=== PATIENT | male | born 1995 | race Caucasian/White ===

== ENCOUNTER 2017-05-17 08:36 | Emergency (ER) | payer OTHER ==
[2017-05-17 08:46] VITALS: RESP 16; TEMP 97.7; O2SAT 97
--- NOTE | 2017-05-17 09:08 | EDPHY ---
H & P Time Seen by Provider: 05/17/17 08:58 HPI/ROS: CHIEF COMPLAINT: Abdominal pain HISTORY OF PRESENT ILLNESS: Patient is a 21-year-old male who presents emergency department with epigastric abdominal pain. The patient states that he had dysuria and frequency last week. He was seen at a free-standing emergency department on . A few days later he was called and diagnosed with chlamydia. He took a 1000 mg of azithromycin as an outpatient. He now has mild abdominal discomfort that started after taking azithromycin. He has no dysuria or frequency. No visible hematuria. No fevers or chills. No nausea or vomiting. No suprapubic pain. REVIEW OF SYSTEMS: My complete review of systems is negative except as mentioned in the HPI. Past Medical/Surgical History: Includes bipolar disorder, OCD, attention deficit hyperactivity disorder, anxiety Past surgical history: Negative Social history: Patient smokes cigarettes. Smoking Status: Current every day smoker Physical Exam: Vitals noted. 36.5, 119/75, 58, 16, 97% on room air GENERAL: Well-appearing, in no acute distress, alert. HEENT: Eyes normal to inspection, normal pharynx, no signs of dehydration. NECK: No thyromegaly, no lymphadenopathy, supple. RESPIRATORY: Clear to auscultation bilaterally, no rales, rhonchi or wheezing. CVS: Regular rate and rhythm, no rubs, murmurs, or gallops. ABDOMEN: Soft, mild epigastric tenderness to palpation with no rebound or guarding, nondistended, no organomegaly. BACK: Normal to inspection, no CVA tenderness. SKIN: Normal color, no rash, warm, dry. No pallor. EXTREMITIES: No pedal edema, no calf tenderness, no Homans sign or cords, no joint swelling. NEURO/PSYCH: Alert and oriented x3, normal mood and affect, normal motor sensory exam. Constitutional: Initial Vital Signs Temperature (C) 36.5 C 05/17/17 08:42 Heart Rate 58 L 05/17/17 08:42 Respiratory Rate 16 05/17/17 08:42 Blood Pressure 119/75 05/17/17 08:42 O2 Sat (%) 97 05/17/17 08:42 Allergies/Adverse Reactions: No Known Allergies Allergy (Verified 05/17/17 08:46) Home Medications: Medication Instructions Recorded Famotidine [Pepcid 20 MG (*)] 20 mg PO BID #10 tab 05/17/17 Medical Decision Making ED Course/Re-evaluation: In the emergency department I discussed possible etiologies with the patient. Answered all his questions. A urine sample was obtained. UA: No acute disease noted. A urine culture was sent. I discussed the results with the patient. I answered all his questions. On repeat exam the patient is doing well. He had normal vital signs and a benign repeat exam. Because of this I do not feel he needs further laboratory studies or imaging at this time. I discussed other etiologies with the patient including but not limited to pancreatitis, cholecystitis, GERD, esophagitis, obstruction. Patient was given warnings will return with worsening symptoms. He felt comfortable with this plan. He will take the entire prescription of Pepcid. Differential Diagnosis: My differential includes but is not limited to sexually transmitted disease, urinary tract infection, pyelonephritis, GERD, gastritis, esophagitis, thrush, pancreatitis, cholecystitis - Data Points Laboratory Results: 05/17/17 09:15 Urine Color YELLOW Urine Appearance CLEAR Urine pH 6.0 (5.0-7.5) Ur Specific [place] 1.025 (1.002-1.030) Urine Protein NEGATIVE (NEGATIVE) Urine Ketones NEGATIVE (NEGATIVE) Urine Blood NEGATIVE (NEGATIVE) Urine Nitrate NEGATIVE (NEGATIVE) Urine Bilirubin NEGATIVE (NEGATIVE) Urine Urobilinogen 0.2 EU EU (0.2-1.0) Ur Leukocyte Esterase NEGATIVE (NEGATIVE) Urine Glucose NEGATIVE (NEGATIVE) Departure - Departure Disposition: Home, Routine, Self-Care Clinical Impression: Abdominal pain Qualifiers: Abdominal location: epigastric Qualified Code(s): R10.13 - Epigastric pain Condition: Good Instructions: Acute Abdominal Pain (ED) Additional Instructions: Return with increasing pain, fever, vomiting, or any other concerns. Take your Pepcid as directed by your prescription. Referrals: [facility],. [Clinic] - 2-3 days, if not improved Paloma Uribe MD [Medical Doctor] - 3-4 days, if not improved Prescriptions: Famotidine [Pepcid 20 MG (*)] 20 mg PO BID #10 tab
[2017-05-17 09:22] LABS: COLOR YELLOW; LEUKOCYTE ESTERASE,URINE NEGATIVE (NEGATIVE); NITRITE,URINE NEGATIVE (NEGATIVE)
[2017-05-17 09:39] VITALS: BP 119/64; PULSE 74
== END 2017-05-17 09:26 | disposition home or self-care (01) ==
LOC: CED 08:36
DX: R10.13 Epigastric pain (principal); F17.210 Nicotine dependence, cigarettes, uncomplicated
CPT/HCPCS: 81003-PO